=== PATIENT | female | born 1985 | race African-American/Black ===

== ENCOUNTER 2020-12-04 09:12 | Emergency (ER) | payer SELFPAY ==
--- NOTE | 2020-12-04 12:37 | ER Document Report ---
ED Breast Problem - General Chief Complaint: Breast Lump Stated Complaint: BREAST PAIN Time Seen by Provider: 12/04/20 12:18 Mode of Arrival: Ambulatory Information source: Patient - HPI Notes: Patient states she is having some right breast pain. She states this pain is mainly located in the nipple area of the right breast. She is also noticed a small raised area approximately 9:00 on the right nipple. Patient states she has had this nipple pierced several times and that this raised area seems to be consistent with where the nipple was pierced. She denies any other symptoms. - Related Data Allergies/Adverse Reactions: Penicillins Allergy (Verified 12/04/20 09:30) Past Medical History - General Information source: Patient - Social History Smoking Status: Former Smoker Frequency of alcohol use: None Drug Abuse: None Family History: Reviewed & Not Pertinent Review of Systems - Review of Systems Constitutional: denies: Chills, Fever Cardiovascular: denies: Chest pain, Palpitations Respiratory: denies: Cough, Short of breath -: Yes All other systems reviewed and negative Physical Exam - Vital signs Vitals: Temp Pulse Resp BP Pulse Ox 98.6 F 81 16 133/82 H 97 12/04/20 09:15 12/04/20 09:15 12/04/20 09:15 12/04/20 09:15 12/04/20 09:15 Interpretation: Normal - General General appearance: Appears well, Alert - HEENT Head: Normocephalic, Atraumatic Eyes: Normal Pupils: PERRL - Respiratory Respiratory status: No respiratory distress Chest status: Nontender Breath sounds: Normal Chest palpation: Normal Notes: Breast exam patient does have a tender fluctuant area located only on the right nipple. It is consistent with a small abscess. The rest of the breast is nontender and has no fluctuance or induration. - Cardiovascular Rhythm: Regular Heart sounds: Normal auscultation Murmur: No - Abdominal Inspection: Normal Distension: No distension Bowel sounds: Normal Tenderness: Nontender Organomegaly: No organomegaly - Back Back: Normal, Nontender - Extremities General upper extremity: Normal inspection, Nontender, Normal color, Normal ROM, Normal temperature General lower extremity: Normal inspection, Nontender, Normal color, Normal ROM, Normal temperature, Normal weight bearing. No: Gentry's sign - Neurological Neuro grossly intact: Yes Cognition: Normal Orientation: AAOx4 Emma Coma Scale Eye Opening: Spontaneous Emma Coma Scale Verbal: Oriented Emma Coma Scale Motor: Obeys Commands [place] Coma Scale Total: 15 Speech: Normal Motor strength normal: LUE, RUE, LLE, RLE Sensory: Normal - Psychological Associated symptoms: Normal affect, Normal mood - Skin Skin Temperature: Warm Skin Moisture: Dry Skin Color: Normal Course - Vital Signs Vital signs: Temp Pulse Resp BP Pulse Ox 98.6 F 81 16 133/82 H 97 12/04/20 09:15 12/04/20 09:15 12/04/20 09:15 12/04/20 09:15 12/04/20 09:15 - Laboratory Results Critical Laboratory Results Reviewed: No Critical Results - Radiology Results Critical Radiology Results Reviewed: No Critical Results Procedures - Incision and Drainage Right Chest Time completed: 12:33 Type: Simple Blade size: Other - 25g needle I&D procedure: Betadine prep applied, Sterile dressing applied Incision Method: Incision made with needle Amount/type of drainage: 3ccs pus Discharge - Discharge Clinical Impression: Abscess of right nipple Condition: Stable Disposition: HOME, SELF-CARE Instructions: Abscess ([facility]), Oral Narcotic Medication ([facility]), Cephalexin ([facility]), Post Incision and Drainage Additional Instructions: ProvideIf you have any further pain or fevers please return for reevaluation Prescriptions: Cephalexin Monohydrate [Keflex 500 mg Capsule] 500 mg PO Q6H 5 Days capsule Hydrocodone/Acetaminophen [[place] 5-325 mg Tablet] 1 tab PO Q6 PRN 3 Days #12 tablet PRN Reason: Forms: Return to Work Referrals: [facility] [Provider Group] - Follow up in 1 week
[2020-12-04 12:52] VITALS: BP 136/74
== END 2020-12-04 12:49 | disposition home or self-care (01) ==
LOC: ER 09:12
DX: N61.1 Abscess of the breast and nipple (principal); Z88.0 Allergy status to penicillin; Z87.891 Personal history of nicotine dependence
CPT/HCPCS: 87070; 87075; 87077; 87186; 87205; 99284